=== PATIENT | male | born 2000 | race Caucasian/White ===

== ENCOUNTER 2018-10-18 10:37 | Day surgery (SDC) | payer OTHER ==
[2018-10-14 11:45] VITALS: BMI 27.8
[2018-10-18] MEDS ORDERED: BUPIVACAINE HCL/PF 2.5 MG/ML - 30 ML VIAL IJ ONE (13:15)
[2018-10-18] MEDS ORDERED: LIDOCAINE HCL/PF 2% SDV 5ML VIAL ONE (13:15)
[2018-10-18] MEDS ORDERED: ONDANSETRON 4 MG/2 ML VIAL ONE (13:15)
[2018-10-18] MEDS ORDERED: PROPOFOL 20 ML ONE ×2 (13:15→13:47)
[2018-10-18] MEDS ORDERED: MIDAZOLAM HCL 2 MG/2 ML SINGLE DOSE VIAL ONE (13:15)
[2018-10-18] MEDS ORDERED: DEXAMETHASONE SOD PHOSPHATE 4 MG/1 ML VIAL ONE (13:15)
[2018-10-18] MEDS ORDERED: ceFAZolin SODIUM 1 GM VIAL ONE (13:35)
[2018-10-18] MEDS ORDERED: BUPIVACAINE HCL/PF 0.25% (2.5MG/ML) 10 ML VIAL IJ ONE (13:57)
[2018-10-18] MEDS ORDERED: ONDANSETRON 4 MG/2 ML VIAL IVPUSH PRN (14:32)
[2018-10-18] MEDS ORDERED: oxyCODONE HCL 5 MG TABLET PO PRN (14:32)
[2018-10-18 14:41] VITALS: PULSE 64
[2018-10-18] MEDS ORDERED: LACTATED RINGERS SOLUTION 1,000 ML IV SCH (14:45)
[2018-10-18 15:25] VITALS: TEMP 97.8
--- NOTE | 2018-10-18 15:44 | OP ---
DATE OF OPERATION: 10/18/2018 SURGEON: Wesley Waddell M.D. LEATHER WORKER: Sissy Low PREOPERATIVE DIAGNOSIS: 1. Left knee cartilage injury. 2. Left knee synovitis. 3. Left knee patellofemoral instability. 4. Left knee loose body. POSTOPERATIVE DIAGNOSIS: 1. Left knee cartilage injury. 2. Left knee synovitis. 3. Left knee patellofemoral instability. 4. Left knee loose body. PROCEDURE: 1. Left knee arthroscopy with chondroplasty, CPT code 36759. 2. Left knee arthroscopy with synovectomy, CPT code 02633. 3. Arthroscopic lateral release, CPT code 63735. 4. Arthroscopic loose body through separate incision PROCEDURE: Informed consent was obtained. The patient came to the operating room, where the lower extremity was prepped and draped in a sterile fashion. A tourniquet was placed on the upper thigh, but not inflated. Using standard arthroscopic technique, a lateral incision and portal was made to allow for introduction of the camera into the suprapatellar bursa. This was then taken to the medial joint line, where under direct visualization, a medial incision and portal was made. Excessive synovium noted in the medial, lateral and patellofemoral and notch area was removed by an upbiter, shaver and Bovie cautery. This was found to bring in inflammatory tissue into the joint surface, a source of pain and dysfunction. Probing of the medial and lateral meniscus found tears, as described in the findings. These were removed with the upbiter and shaver and taken back to a stable rim. Grade 2 to 3 degenerative changes were treated with a chondroplasty, removing all flaking surfaces with low-setting Bovie along the periphery to prevent further flaking. Grade 4 changes, as noted, were treated with an abrasoplasty, creating a bleeding surface at the bone/cartilage interface. Aggressive debridement with shaver/anastasia created bleeding surface. Micro fracture also done when indicated in findings. All areas of the knee were once again reexamined. The knee was then drained and a single suture was placed in all portals. A sterile dressing was placed and the patient was transferred to the recovery room without complication. The PA listed above was present and assisted at surgery. Their presence was absolutely medically necessary for the completion of the procedure. They helped hold the arthroscopy, pass instruments (and implants when indicated) and the procedure could not have been completed without their assistance. ADDENDUM: Patient had no evidence of meniscal tear. There was a large, loose body noted on the MRI. The medial portal was extended to 4 cm to accommodate the size of the loose body. Hemostat was placed, and the loose body was retrieved. The patellofemoral joint was noted to have lateral subluxation, likely the source of the loose body from a remote cartilage injury. Lateral release was performed using Bovie to release the lateral retinaculum which allowed for centralization of the patellofemoral joint. Knee was then drained, single sutures placed to all portals, sterile dressings were placed, patient transferred to recovery without complications. WESLEY WADDELL M.D. [id number]
[2018-10-18 16:10] VITALS: BP 108/69
--- NOTE | 2018-10-22 13:37 | PATH ---
Surgical Pathology Report Patient Name: TYESHA PEREZ Med. Rec. #: [id number] /Age/Gender: 2000 (Age: 18) / M Account: [id number] Location: [facility] AMBULATORY Taken: 10/18/2018 Received: 10/18/2018 Reported: 10/22/2018 Physicians: Wesley Dumont M.D. Specimen(s) Received A: LEFT KNEE SHAVINGS B: LEFT KNEE LOOSE BODY Clinical History Left knee internal derangement, loose body Final Diagnosis A. KNEE, LEFT, ARTHROSCOPIC SHAVING: FIBROCARTILAGE WITH MYXOID DEGENERATIVE CHANGES, ALONG WITH PORTIONS OF SYNOVIUM AND HYALINE CARTILAGE. B. LOOSE BODY, LEFT KNEE, EXCISION: BONE AND CARTILAGE WITH ATTACHED SYNOVIAL TISSUE CONSISTENT WITH LOOSE BODY. Electronically Signed Erasto Hewitt M.D. Gross Description A. Received in formalin labeled "left knee shavings," is a 2.5 x 1.5 x 0.3 cm aggregate of hoang-yellow soft tissue fragments. The formalin is filtered and the specimen is entirely submitted in one cassette. B. Received in formalin labeled "left knee loose body," is a 1.6 x 1.3 x 0.4 cm hoang, focally calcified portion of cartilage. The specimen is serially sectioned and entirely submitted in one cassette, following decalcification. 10/21/2018 [facility]10/21/2018
== END 2018-10-18 16:05 | disposition home or self-care (01) ==
LOC: FASU 10:37
PROVIDERS: ATTEND Orthopaedic Surgery
PROC: 0SBD4ZZ Excision of Left Knee Joint, Percutaneous Endoscopic Approach (ICD-10-PCS; 2018-10-18)
PROC: 0MNP4ZZ Release Left Knee Bursa and Ligament, Percutaneous Endoscopic Approach (ICD-10-PCS; 2018-10-18)
PROC: 0SCD4ZZ Extirpation of Matter from Left Knee Joint, Percutaneous Endoscopic Approach (ICD-10-PCS; 2018-10-18)
PROC: 0SBD4ZZ Excision of Left Knee Joint, Percutaneous Endoscopic Approach (ICD-10-PCS; principal; 2018-10-18 12:00)
DX: M65.862 Other synovitis and tenosynovitis, left lower leg (principal); M23.52 Chronic instability of knee, left knee; M23.42 Loose body in knee, left knee
CPT/HCPCS: 88304-TC; 88311-TC; 94760